=== PATIENT | female | born 1990 | race Caucasian/White ===

== ENCOUNTER 2024-08-21 12:23 | Emergency (ER) | payer OTHER, SELFPAY ==
[2024-08-21 12:24] VITALS: BP 97/61; PULSE 95; RESP 20; TEMP 36.8; O2SAT 100; BMI 19.2
--- NOTE | 2024-08-21 12:34 | US_ITS ---
PROCEDURE INFORMATION: Exam: US , Transvaginal Exam date and time: 08/21/2024 12:36 PM Age: 33 years old Clinical indication: Lmp or gestational age (in weeks): 6w3d; Antepartum complications; Bleeding; ; Additional info: 6 weeks vaginal bleeding LABS AND CLINICAL REPORTS: Last menstrual period start date: 07/07/2024 Gestational age (Established): 6 w 3 d Estimated due date (Established): 04/13/2025 TECHNIQUE: Imaging protocol: Real-time transvaginal obstetrical ultrasound of the maternal pelvis with image documentation. Transvaginal imaging was used for better evaluation of the fetus, adnexa, and/or cervix. COMPARISON: No relevant prior studies available. FINDINGS: Gestation: There is a cystic structure within the endometrial cavity presumably a gestational sac. pole nor yolk sac are identified. BIOMETRY: Gestational age (AUA): 5 w 0 d Estimated due date (AUA): 04/23/2025 Mean sac diameter: 0.66 cm. MATERNAL: Right ovary/adnexa: Right ovary measures 2.69 cm x 2.12 cm x 1.77 cm. Right ovarian volume is 5.29 mL. Ovarian stroma is unremarkable. There is normal arterial inflow and venous outflow. Left ovary/adnexa: Left ovary measures 2.75 cm x 1.68 cm x 0.93 cm. Left ovarian volume is 2.25 mL. Ovarian stroma is unremarkable. There is normal arterial inflow and venous outflow. IMPRESSION: Cystic structure within endometrial cavity may represent a gestational sac. Neither pole nor yolk sac are identified. Considerations include a normal intrauterine too early to visualize, completed miscarriage, and ectopic . Recommend correlation with beta hCG values and close clinical follow-up with repeat sonography as clinically warranted
--- NOTE | 2024-08-21 12:36 | HMH.EDGENADL ---
Discharge Plan Disposition Patient Disposition: Home, Self-Care Condition: Good Prescriptions Prescriptions: New cefdinir 300 mg capsule 300 mg PO BID 7 Days Qty: 14 0RF No Action Complete 14 mg iron- 400 mcg Tablet 1 tab PO DAILY Referrals Follow up/Referrals: Sisi Ryan DO [Staff Physician] - See instructions Provider,Referral, [Primary Care Provider] - See instructions Activity Restrictions/Add. Instructions Additional Instructions/Restrictions: Please return to the emergency department for any worsening signs or symptoms to include leading through multiple pads, passing large clots return to the emergency department. Please keep your follow-up/appointment with Dr. Ryan. Please call the office on Thursday. For appointment on Thursday. Please take antibiotic as prescribed for UTI. Clinical Impressions Clinical Impression: Vaginal bleeding affecting early , Complete , UTI (urinary tract infection) Instructions Patient Instructions: DI for Urinary Tract Infection (UTI), DI for Vaginal Bleeding During Print Language Print Language: Argentine Discharge ED Provider: Marcus Gonzalez General Adult HPI <PB Herbert - Last Filed: 08/21/24 14:12> General Chief complaint: Vaginal Bleeding Stated complaint: 6 weeks preg, vaginal bleeding Time Seen by Provider: 08/21/24 12:26 Mode of Arrival: Ambulatory Source of Information: Patient Limitations: No Limitations History of Present Illness HPI narrative: 33-year-old approximately 4 to 6 weeks, A0 male patient presents to the emergency department with 1 day history of vaginal bleeding, started to some light pink vaginal bleeding that started yesterday no abdominal cramping, not enough to soak through a pad, she describes as light spotting , progressed to dark red bleeding today. 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 Onset (ago): day(s) Related Data Home Medications ?Medication ?Instructions ?Recorded ?Confirmed vits,calcium 21-iron fum 1 tab PO DAILY 08/21/24 08/21/24 14 mg iron-folic acid 400 mcg tablet ( Complete) Previous Rx's ?Medication ?Instructions ?Recorded cefdinir 300 mg capsule 300 mg PO BID 7 days #14 caps 08/21/24 Allergies Allergy/AdvReac Type Severity Reaction Status Date / Time Penicillins Allergy Rash Verified 08/21/24 12:42 PFS <PB Herbert - Last Filed: 08/21/24 14:12> [facility] Disclaimer: The information contained in this section may have been updated after the patient was seen, as this information can be updated by other users. Social History (Updated 08/21/24 @ 14:12 by PB Herbert) Smoking Status: Never smoker alcohol intake: never current occupational status: other <PB Herbert - Last Filed: 08/21/24 14:12> ROS Obtained: Yes All systems reviewed & no additional complaints except as documented Physical Exam <PB Herbert - Last Filed: 08/21/24 14:12> General General appearance: alert and in no apparent distress Head Head exam: atraumatic and normocephalic Eye Eye exam: Present PERRL and EOMI ENT ENT exam: Present mucous membranes moist Neck Neck exam: Present normal inspection Chest Chest inspection: Present normal inspection and symmetric chest wall rise Respiratory Respiratory exam: Present normal lung sounds bilaterally; Absent respiratory distress Cardiovascular Cardiovascular exam: Present regular rate and normal rhythm Abdominal Exam Abdominal exam: Present soft; Absent tenderness Extremities Exam Extremities exam: Present normal inspection Neurological Exam Neurological exam: Present alert and oriented X3 Psychiatric Psychiatric exam: Present normal affect Skin Skin exam: Present warm and dry Medical Decision Making <PB Herbert - Last Filed: 08/21/24 14:12> Medical Records Medical records reviewed: Yes I reviewed the patient's medical records. Screening: Per USPSTF and CDC recommendations, given the prevalence of disease in our region, it is our hospital?s policy to screen for HIV and viral Hepatitis for all patients aged 18 and over and those with ongoing risk factors. Thang Inquiry Pt receiving controlled substance: No Thang was queried for this patient: No Vital Signs: 08/21/24 12:24 08/21/24 13:30 08/21/24 14:00 Temperature 98.2 F Temperature Source Oral Pulse Rate 90 88 Pulse Rate [Right Radial] 95 H Respiratory Rate 20 Blood Pressure 92/62 L 106/73 L Blood Pressure [Right Arm] 97/61 L Blood Pressure Mean 71 82 Blood Pressure Mean [Right Arm] 73 Blood Pressure Source 02 Sat by Pulse Oximetry 100 98 100 Oxygen Delivery Method Room Air 08/21/24 14:29 08/21/24 14:30 Temperature 98.0 F Temperature Source Oral Pulse Rate 89 86 Pulse Rate [Right Radial] Respiratory Rate 16 Blood Pressure 106/73 L 105/65 L Blood Pressure [Right Arm] Blood Pressure Mean 76 Blood Pressure Mean [Right Arm] Blood Pressure Source Automatic Cuff 02 Sat by Pulse Oximetry 100 Oxygen Delivery Method Room Air Lab Data Lab results reviewed: Yes I reviewed the patient's lab results. Lab Results 08/21/24 12:30: Urine Color Dark yellow, Urine Appearance Turbid, Urine pH 5.5, Ur Specific [place] >= 1.030, Urine Protein 2+ A, Urine Glucose (UA) Negative, Urine Ketones 2+, Urine Blood 3+ A, Urine Nitrate Positive A, Urine Bilirubin 2+ A, Urine Urobilinogen 0.2, Ur Leukocyte Esterase 1+ A, Urine RBC Tntc, Urine WBC 5-10, Ur Squamous Epith Cells 3-5, Urine Bacteria Trace 08/21/24 12:32: WBC 12.1 H, RBC 4.71, Hgb 14.6, Hct 43.0, MCV 91.3, MCH 31.1, MCHC 34.0, RDW 13.4, Plt Count 427 H, MPV 7.4, Neut % (Auto) 84.6 H, Lymph % (Auto) 9.4 L, [place] % (Auto) 5.1, Eos % (Auto) 0.3, Baso % (Auto) 0.6, Neut # (Auto) 10.2 H, Lymph # (Auto) 1.1, [place] # (Auto) 0.6, Eos # (Auto) 0.0, Baso # (Auto) 0.1, PT 10.9, INR 0.97, Sodium 140, Potassium 3.7, Chloride 105, Carbon Dioxide 24, Anion Gap 14.7, BUN 14, Creatinine 0.60, Estimated Creat Clear 101, Estimated GFR 116, Est GFR ( Amer) 140, Glucose 119 H, Calcium 9.4, Total Bilirubin 1.0, AST 25, ALT 19, Alkaline Phosphatase 93, Total Protein 9.3 H, Albumin 5.3 H, Globulin 4.0 H, Albumin/Globulin Ratio 1.3, HCG, Quant 970 H, Blood Type O Positive 08/21/24 12:32 08/21/24 12:32 Orders (Tests/Meds): ED MEDICATIONS Discontinued Medications Generic Name Dose Route Start Last Admin Trade Name Aleena PRN Reason Stop Dose Admin Ceftriaxone Sodium 1 gm/ 50 mls @ 100 mls/hr 08/21/24 13:56 08/21/24 14:35 Sodium Chloride IV 08/21/24 14:25 100 mls/hr ONCE ONE Administration ORDERS Category Date Time Status ABO/RH Type Stat BBK 08/21/24 12:32 Completed Beta HCG, Quant [HCG,Quantitative] Stat Lab 08/21/24 12:32 Completed Complete Blood Count Auto Diff Stat Lab 08/21/24 12:32 Completed Comprehensive Metabolic Panel Stat Lab 08/21/24 12:32 Completed PT INR [Prothrombin Time INR] Stat Lab 08/21/24 12:32 Completed Urinalysis and Microscopic Stat Lab 08/21/24 12:30 Completed Urine Culture Stat Micro 08/21/24 12:30 Received US OB transvaginal Stat Ultrasound 08/21/24 12:34 Completed Medical Decision Narrative: 33-year-old female presents emergency department approximately 4 to 6 weeks gestation with vaginal bleeding started yesterday, differential diagnose include but not limited to subchorionic hematoma, spontaneous , molar , gestational trophoblastic disease, implantation of bleeding, cervicitis, acute UTI. I discussed patient case with attending physician Dr. Gonzalez Obtain basic laboratory studies, beta-hCG quant, transvaginal ultrasound and coagulation studies as well as urinalysis further evaluate/characterization, also obtain ABO Rh. Urinalysis notable for 2+ proteinuria, positive nitrites, 1+ leuk estrace 3+ hematuria CBC is notable for leukocytosis 12.1, patient has has reactive thrombocytosis Coags normal, blood type O positive. Beta-hCG is 970 Will give 1 g IV ceftriaxone for nitrite positive UTI. Reviewed the patient's transvaginal ultrasound along the corresponding radiologic report there is a cystic structure within the endometrial cavity which may represent a gestational sac, neither pole nor yolk sac identified considerations include a normal intrauterine too early to visualize completed miscarriage and ectopic , recommend correlation with beta hCG values and close follow-up with repeat sonography as clinically warranted. I was able to speak to the FORM SETTER SUPERVISOR on-call Dr. Ryan at approximately 2:04 PM, she states that she will see the patient in clinic on Thursday, recommended bleeding precautions, treat UTI. I discussed these results/recommendations with the patient the bedside patient famine agreement current discharge plan/treatment plan. Strict ED return precaution was given to the patient and at the bedside patient famine agreement current treatment plan/discharge plan, will follow-up with [employer]M [employer]TER SUPERVISOR provider as directed. Give patient cefdinir 300 mg p.o. twice daily for 7 days for UTI. Patient will take medication as prescribed. <Marcus Gonzalez MD - Last Filed: 08/21/24 15:21> Vital Signs: 08/21/24 12:24 08/21/24 13:30 08/21/24 14:00 Temperature 98.2 F Temperature Source Oral Pulse Rate 90 88 Pulse Rate [Right Radial] 95 H Respiratory Rate 20 Blood Pressure 92/62 L 106/73 L Blood Pressure [Right Arm] 97/61 L Blood Pressure Mean 71 82 Blood Pressure Mean [Right Arm] 73 Blood Pressure Source 02 Sat by Pulse Oximetry 100 98 100 Oxygen Delivery Method Room Air 08/21/24 14:29 08/21/24 14:30 Temperature 98.0 F Temperature Source Oral Pulse Rate 89 86 Pulse Rate [Right Radial] Respiratory Rate 16 Blood Pressure 106/73 L 105/65 L Blood Pressure [Right Arm] Blood Pressure Mean 76 Blood Pressure Mean [Right Arm] Blood Pressure Source Automatic Cuff 02 Sat by Pulse Oximetry 100 Oxygen Delivery Method Room Air Lab Data Lab Results 08/21/24 12:30: Urine Color Dark yellow, Urine Appearance Turbid, Urine pH 5.5, Ur Specific [place] >= 1.030, Urine Protein 2+ A, Urine Glucose (UA) Negative, Urine Ketones 2+, Urine Blood 3+ A, Urine Nitrate Positive A, Urine Bilirubin 2+ A, Urine Urobilinogen 0.2, Ur Leukocyte Esterase 1+ A, Urine RBC Tntc, Urine WBC 5-10, Ur Squamous Epith Cells 3-5, Urine Bacteria Trace 08/21/24 12:32: WBC 12.1 H, RBC 4.71, Hgb 14.6, Hct 43.0, MCV 91.3, MCH 31.1, MCHC 34.0, RDW 13.4, Plt Count 427 H, MPV 7.4, Neut % (Auto) 84.6 H, Lymph % (Auto) 9.4 L, [place] % (Auto) 5.1, Eos % (Auto) 0.3, Baso % (Auto) 0.6, Neut # (Auto) 10.2 H, Lymph # (Auto) 1.1, [place] # (Auto) 0.6, Eos # (Auto) 0.0, Baso # (Auto) 0.1, PT 10.9, INR 0.97, Sodium 140, Potassium 3.7, Chloride 105, Carbon Dioxide 24, Anion Gap 14.7, BUN 14, Creatinine 0.60, Estimated Creat Clear 101, Estimated GFR 116, Est GFR ( Amer) 140, Glucose 119 H, Calcium 9.4, Total Bilirubin 1.0, AST 25, ALT 19, Alkaline Phosphatase 93, Total Protein 9.3 H, Albumin 5.3 H, Globulin 4.0 H, Albumin/Globulin Ratio 1.3, HCG, Quant 970 H, Blood Type O Positive Orders (Tests/Meds): ED MEDICATIONS Discontinued Medications Generic Name Dose Route Start Last Admin Trade Name Freq PRN Reason Stop Dose Admin Ceftriaxone Sodium 1 gm/ 50 mls @ 100 mls/hr 08/21/24 13:56 08/21/24 14:35 Sodium Chloride IV 08/21/24 14:25 100 mls/hr ONCE ONE Administration ORDERS Category Date Time Status ABO/RH Type Stat BBK 08/21/24 12:32 Completed Beta HCG, Quant [HCG,Quantitative] Stat Lab 08/21/24 12:32 Completed Complete Blood Count Auto Diff Stat Lab 08/21/24 12:32 Completed Comprehensive Metabolic Panel Stat Lab 08/21/24 12:32 Completed PT INR [Prothrombin Time INR] Stat Lab 08/21/24 12:32 Completed Urinalysis and Microscopic Stat Lab 08/21/24 12:30 Completed Urine Culture Stat Micro 08/21/24 12:30 Received US OB transvaginal Stat Ultrasound 08/21/24 12:34 Completed Medical Decision Narrative: 33-year-old female presents emergency department approximately 4 to 6 weeks gestation with vaginal bleeding started yesterday, differential diagnose include but not limited to subchorionic hematoma, spontaneous , molar , gestational trophoblastic disease, implantation of bleeding, cervicitis, acute UTI. I discussed patient case with attending physician Dr. Lisa Obtain basic laboratory studies, beta-hCG quant, transvaginal ultrasound and coagulation studies as well as urinalysis further evaluate/characterization, also obtain ABO Rh. Urinalysis notable for 2+ proteinuria, positive nitrites, 1+ leuk estrace 3+ hematuria CBC is notable for leukocytosis 12.1, patient has has reactive thrombocytosis Coags normal, blood type O positive. Beta-hCG is 970 Will give 1 g IV ceftriaxone for nitrite positive UTI. Reviewed the patient's transvaginal ultrasound along the corresponding radiologic report there is a cystic structure within the endometrial cavity which may represent a gestational sac, neither pole nor yolk sac identified considerations include a normal intrauterine too early to visualize completed miscarriage and ectopic , recommend correlation with beta hCG values and close follow-up with repeat sonography as clinically warranted. I was able to speak to the FORM SETTER SUPERVISOR on-call Dr. Ryan at approximately 2:04 PM, she states that she will see the patient in clinic on Thursday, recommended bleeding precautions, treat UTI. I discussed these results/recommendations with the patient the bedside patient famine agreement current discharge plan/treatment plan. Strict ED return precaution was given to the patient and at the bedside patient famine agreement current treatment plan/discharge plan, will follow-up with [employer]M [employer]TER SUPERVISOR provider as directed. Give patient cefdinir 300 mg p.o. twice daily for 7 days for UTI. Patient will take medication as prescribed. I was consulted by the TRACY, and we discussed the complexity of the problems being addressed. I approved the treatment and management plan for this patient's care in the Emergency Department, thus performing a substantive portion of the medical decision making. Marcus Gonzalez MD Critical Care <PB Herbert - Last Filed: 08/21/24 14:12> Critical Care Time Critical Care Time: No
[2024-08-21 12:37] LABS: Microscopic, Urine URINE MICROSCOPIC (MICROSCOPIC)
[2024-08-21 12:38] LABS: Appearance,Urine TURBID (Clear); Blood, Urine 3+ (Negative); Glucose,Urine (UA) Negative (Negative); Ketones,Urine 2+ (Negative); Leukocyte Esterase,Urine 1+ (Negative); Nitrate,Urine POSITIVE (Negative); PH,Urine 5.5 (5.0-8.5); Protein,Urine 2+ (Negative); Specific Gravity, Urine >= 1.030 (1.005-1.030); Urobilinogen,Urine 0.2 EU/dl (0.2)
[2024-08-21 12:39] LABS: Bilirubin,Urine 2+ (Negative); Color,Urine DARK YELLOW (Yellow)
[2024-08-21 12:45] LABS: Bacteria,Urine Trace /lpf; RBC,Urine TNTC #/hpf (0-3)
[2024-08-21 12:47] LABS: Basophils # 0.1 K/mm3 (0-0.2); Basophils % 0.6 % (0.1-2.0); Eosinophils % 0.3 % (0.1-12.0); Hemoglobin 14.6 g/dL (12.2-16.2); Lymphocytes # 1.1 K/mm3 (0.7-4.5); Lymphocytes % 9.4 % (10-50); Mean Corpuscular Hemoglobin 31.1 pg (27.0-31.2); Mean Corpuscular Volume 91.3 fl (81-99); Mean Platelet Volume 7.4 fl (7.4-10.4); Monocytes # 0.6 K/mm3 (0.1-1.0); Monocytes % 5.1 % (1.7-9.3); Neutrophils # 10.2 K/mm3 (1.8-7.8); Neutrophils % 84.6 % (37.0-80.0); Platelet Count 427 K/mm3 (142-424); Red Blood Count 4.71 M/mm3 (4.20-5.40); Red Cell Distribution Width 13.4 % (11.5-17.5); White Blood Count 12.1 K/mm3 (4.8-10.8)
[2024-08-21 12:52] LABS: Albumin Level 5.3 g/dl (3.5-5.0); Chloride 105 mmol/L (98-107); Potassium 3.7 mmoL/L (3.5-5.1); Sodium 140 mmol/L (136-145)
[2024-08-21 12:55] LABS: Alanine Aminotransferase 19 U/L (12-78); Albumin/Globulin Ratio 1.3 (1.1-1.8); Alkaline Phosphatase 93 U/L (38-126); Anion Gap 14.7 mEq/L (5-15); Aspartate Amino Transferase 25 U/L (14-36); Blood Urea Nitrogen 14 mg/dl (7-17); Calcium 9.4 mg/dl (8.4-10.2); Carbon Dioxide 24 mmol/L (22.0-30.0); Creatinine Clearance Estimated 101 mL/min (50-200); Estimated Glomerular Filt Rate 116 ml/min (>60); GFR (African American) 140 ML/MIN (>60); Glucose 119 mg/dl (74-100); Total Protein,Serum 9.3 g/dl (6.3-8.2)
[2024-08-21 12:56] LABS: INR 0.97 (0.9-1.1); Prothrombin Time 10.9 seconds (10.1-12.5)
[2024-08-21 13:20] LABS: HCG,Quantitative 970 mIU/ml (0-5.42)
[2024-08-21 13:30] VITALS: BP 92/62; PULSE 90; O2SAT 98
[2024-08-21 14:00] VITALS: BP 106/73; PULSE 88; O2SAT 100
[2024-08-21 14:29] VITALS: BP 106/73; PULSE 89; RESP 16; TEMP 36.7; O2SAT 100
[2024-08-21 14:30] VITALS: BP 105/65; PULSE 86; O2SAT 100
[2024-08-21] MEDS: CEFTRIAXONE SODIUM 1 GM in 0.9 % SODIUM CHLORIDE 50 ML IV (14:35)
== END 2024-08-21 14:55 | disposition home or self-care (01) ==
PROVIDERS: Physician Assistant; Emergency Provider Emergency Medicine
DX: O03.9 Complete or unspecified spontaneous abortion without complication (principal); N39.0 Urinary tract infection, site not specified
CPT/HCPCS: 76817; 80053; 81001; 84702; 85025; 85610; 86900; 86901; 87086; 99283; J0696

== ENCOUNTER 2024-08-23 11:14 | Outpatient (CLI) | payer OTHER, SELFPAY ==
[2024-08-23 12:26] LABS: HCG,Quantitative 246 mIU/ml (0-5.42)
== END 2024-08-23 23:59 | disposition home or self-care (01) ==
LOC: LAB 11:15
PROVIDERS: Visit Provider Obstetrics & Gynecology
DX: O03.9 Complete or unspecified spontaneous abortion without complication (principal)
CPT/HCPCS: 36415; 84702

== ENCOUNTER 2024-09-01 10:45 | Outpatient (CLI) | payer OTHER, SELFPAY ==
[2024-09-01 11:44] LABS: HCG,Quantitative 10 mIU/ml (0-5.42)
== END 2024-09-01 23:59 | disposition home or self-care (01) ==
LOC: LAB 10:46
PROVIDERS: Visit Provider Obstetrics & Gynecology
DX: O03.9 Complete or unspecified spontaneous abortion without complication (principal)
CPT/HCPCS: 36415; 84702